=== PATIENT | male | born 1980 | race Two or more races ===

== ENCOUNTER 2021-04-30 09:11 | Outpatient (CLI) | payer OTHER | END 2021-04-30 09:39 | disposition home or self-care (01) | LOC: SONOGRAMA 09:11 | PROVIDERS: ATTEND Internal Medicine Cardiovascular Disease | DX: K82.8 Other specified diseases of gallbladder (principal); R10.84 Generalized abdominal pain ==

== ENCOUNTER 2021-07-21 13:30 | Outpatient (CLI) | payer OTHER | END 2021-07-21 13:37 | disposition home or self-care (01) | LOC: RAD 13:30 | PROVIDERS: ATTEND Internal Medicine Cardiovascular Disease | DX: J44.9 Chronic obstructive pulmonary disease, unspecified (principal) ==